=== PATIENT | female | born 1955 | race Caucasian/White ===

== ENCOUNTER 2017-03-23 11:54 | Outpatient (CLI) | payer BC ==
[~2017-03-23] VITALS: Ht 160 cm; Wt 75.9 kg
[2017-03-23 11:53] VITALS: BP 157/74; PULSE 84; RESP 18; Ht 160 cm; Wt 75.9 kg
[2017-03-23] MEDS ORDERED: ASPI-664 PO (12:04)
[2017-03-23] MEDS ORDERED: LISI20TA11 PO (12:04)
--- NOTE | 2017-03-23 22:45 | CONS ---
[facility] INITIAL OUTPATIENT CONSULTATION NOTE DATE OF CONSULTATION: 03/23/2017 PLACE OF SERVICE: [facility]. ASSESSMENT AND PLAN: A very pleasant and relatively healthy 62-year-old lady with an 8 mm infiltrating ductal carcinoma of the right breast. She can benefit from lumpectomy with sentinel lymph node biopsy and, after full multidisciplinary evaluation of her pathology report, then we can decide on further treatment. This will certainly include radiation to the breast and possible chemotherapy if there are worrisome features or perhaps we could do hormonal therapy after radiation. I explained all this to the patient including the operation in detail, which will be done by wire localization, risks, benefits, and alternatives and answered all their questions to the best of my ability. I believe the patient understands and agrees with the plans. With above assessment I have recommended the followin. Preoperative history and physical. 2. Wire localized lumpectomy with sentinel lymph node biopsy. 3. Multidisciplinary Tumor Board presentation. Thank you again for allowing us to participate in the care of this very pleasant lady and I am certain her wonderful family. If there are any questions , please feel free to contact me at [phone]. UPDATED CLINICAL SUMMARY: A very pleasant 62-year-old lady with comorbidity of BMI 29.6 and hypertension who presented with a recently discovered right upper outer quadrant 8 mm lesion of the breast, which on ultrasound-guided biopsy done 01/20/2017, unfortunately, shows infiltrating ductal carcinoma of the breast, moderately differentiated, but by Steele Ramos method (score 6/9) with tubular formations 3/3, nuclear atypia 2/3, and mitotic activity 1/3. Ductal carcinoma in situ was not identified. Lymphovascular invasion was not identified. Immunohistochemical stains for ER/WA were positive. HER-2/nu was negative. COMORBIDITIES: 1. BMI 29.6. 2. Hypertension. 3. Status post cholecystectomy in 1995. HISTORY OF PRESENT ILLNESS: The patient is a very pleasant 62-year-old lady without significant comorbid issues and, only BMI 29.6 and hypertension, presenting with above-mentioned small ductal carcinoma of the right breast in the outer quadrant. She does her own breast exams routinely and has not noted any masses. She also does not have any family history of breast cancer or ovarian/uterine/gynecologic malignancies in the family. There is no history of male breast cancers. She has noted no asymmetry of her breasts and no discharge from her nipples. Her weight has been stable and her appetite has been good. No other major complaints. ALLERGIES: NO KNOWN DRUG ALLERGIES. MEDICATIONS: At home she takes: 1. Aspirin. 2. Lisinopril. 3. Creon. 4. Vitamin D. 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 She does not report any smoking, drinking, or intravenous drug abuse. REVIEW OF SYSTEMS: There are no other pertinent positives or pertinent negatives in a complete 14-point review of systems. PHYSICAL EXAMINATION: GENERAL: The patient appears to be a very pleasant lady of [place] descent, appearing stated age, sitting in a chair comfortably, and in no acute distress. BMI is 29.6. VITAL SIGNS: Temperature 98.1, blood pressure 157/74. Pulse 84, respiratory rate 18. Pulse oximetry 95% on room air. HEENT: Normocephalic and atraumatic. Extraocular muscles and hearing are grossly intact bilaterally and symmetrically. Sclerae are nonicteric. Oral cavity is clear; oral mucosa appeared to be pink and moist. Dentition: fair. NECK: Supple. There is no lymphadenopathy or JVD. There is no submental, submandibular or supraclavicular lymphadenopathy. CHEST: Rises symmetrically with each breath; patient is breathing comfortably. There are no audible wheezes, rales or rhonchi on the gross exam. BREAST: No asymmetry with raising both arms above the head. Left breast exam showed no lymphadenopathy in the axilla. No discharge from the nipple. No significant tenderness to palpation. No skin changes. Right breast exam showed no lymphadenopathy in the axilla. No discharge from the nipple. No significant tenderness to palpation. No skin changes. HEART: Pulse is regular and palpable on the right wrist. Capillary refill was normal. Carotid pulses are palpable bilaterally and symmetrically in the neck. EXTREMITIES: Lower extremities contain no pitting edema around the ankles bilaterally and symmetrically. ABDOMEN: Abdomen is soft, nontender and nondistended. There are no peritoneal signs or guarding. No evidence of ascites, organomegaly, caput medusae, engorged subcutaneous veins, or other abnormalities. SKIN: Appears to be pink and feels warm to touch. NEUROLOGIC: Awake, alert, and follows commands appropriately. LABORATORY VALUES: None for this visit. IMAGING: The patient had a mammogram done bilaterally on 01/09/2017 that showed a suspicious 8 mm mass in the posterior upper outer right breast. Findings were highly suggestive of malignancy and warranted histology using ultrasound-guided core needle biopsy. She underwent this biopsy with ultrasound on 01/20/2017 with deployment of a marker clip at the biopsy site. Note that I personally reviewed all the available and pertinent images and I agree in general with their overall reported findings. To my impression, the clip is slightly outside of the area of the mass as outlined by the mammography. Dictated By: JUAN LOWERY/NTS Conf#: [id number] DID#: [id number] CC: JIMMY CISNEROS M.D.;*EndCC* MTDD
== END 2017-03-23 14:40 | disposition home or self-care (01) ==
LOC: HPC 11:54
PROVIDERS: ATTEND Transplant Surgery
DX: Z01.818 Encounter for other preprocedural examination (principal); C50.811 Malignant neoplasm of overlapping sites of right female breast; I10 Essential (primary) hypertension; Z90.49 Acquired absence of other specified parts of digestive tract
CPT/HCPCS: G0463

== ENCOUNTER 2017-04-09 06:54 | Day surgery (SDC) | payer BC ==
[2017-04-08 11:59] VITALS: BMI 29.3
[~2017-04-09] VITALS: Ht 160 cm; Wt 75.3 kg
[2017-04-09] VITALS (16 sets, daily range): BP systolic 103–149; BP diastolic 62–83; PULSE 70–94; RESP 12–35; Ht 160 cm; Wt 75.3 kg
[~2017-04-09 06:54] MED LIST: ASPI-664 PO; CEFAZOLIN 2 GM/50 ML (PMX) 50 ML IVPB SCH; D5W-0.45 NACL + KCL 20 MEQ 1,000 ML IV SCH; LISI20TA11 PO
[2017-04-09] MEDS ORDERED: CEFAZOLIN 2 GM/50 ML (PMX) 50 ML IVPB ONE (08:00)
[2017-04-09] MEDS ORDERED: D5W-0.45 NACL + KCL 20 MEQ 1,000 ML IV SCH (08:00)
[2017-04-09] MEDS ORDERED: LIPA1CAP6 PO (08:35)
[2017-04-09] MEDS ORDERED: SIMV40TA2 PO (08:36)
[2017-04-09] MEDS ORDERED: BUPIVACAINE 0.25%/EPI (SDV) 30 ML INJ ONE (09:15)
[2017-04-09] MEDS ORDERED: ISOSULFAN BLUE 1% 5 ML INJ SC ONE (09:15)
--- NOTE | 2017-04-09 09:28 | HPN ---
Date/Time of Note Date/Time of Note DATE: 04/09/17 TIME: 09:27 Interval H&P Admission Note Pt. seen H&P reviewed: No system changes Pt. seen H&P reviewed. No system changes (I attest that I have seen and examined the patient and reviewed the operation in detail, as well as its risks , benefits and alternatives of the operation). I attest that I have seen and examined the patient and reviewed in detail the operation, and its associated risks, benefits and alternative. I have answered all the patient's questions to the best of my ability and the patient wishes to proceed. Please refer to rest of electronic medical record for additional updates. JUAN CRUZ M.D. Apr 09, 2017 09:28
[2017-04-09] MEDS ORDERED: MIDAZOLAM 1 MG/ML 2 ML INJ IV PRN (09:30)
[2017-04-09] MEDS ORDERED: EPHEDrine SULFATE 50 MG/5 ML SYG IV PRN (09:30)
[2017-04-09] MEDS ORDERED: morphine (1 MG/ML) 10ML SYRINGE IV PRN ×2 (09:30)
[2017-04-09] MEDS ORDERED: LABETALOL HCL 20MG INJ IV PRN (09:30)
[2017-04-09] MEDS ORDERED: hydrALAzine 20 MG INJ IV PRN (09:30)
[2017-04-09] MEDS ORDERED: DIPHENHYDRAMINE 50 MG INJ IV PRN (09:30)
[2017-04-09] MEDS ORDERED: MEPERIDINE 25 MG INJ IV PRN (09:30)
[2017-04-09] MEDS ORDERED: METOCLOPRAMIDE 10 MG INJ IV PRN (09:30)
[2017-04-09] MEDS ORDERED: FENTAnyl 50 MCG/ML VIAL IV PRN ×2 (09:30)
[2017-04-09] MEDS ORDERED: ONDANSETRON 4 MG INJ IV PRN (09:30)
[2017-04-09] MEDS ORDERED: CEFAZOLIN 1 GM INJ ONE (09:37)
[2017-04-09] MEDS ORDERED: LIDOCAINE 2% (SDV) 5 ML INJ ONE (09:37)
[2017-04-09] MEDS ORDERED: PROPOFOL 20 ML ONE (09:37)
[2017-04-09] MEDS ORDERED: ONDANSETRON 4 MG INJ ONE (09:37)
[2017-04-09] MEDS ORDERED: MEPERIDINE 100 MG INJ ONE (09:37)
[2017-04-09] MEDS ORDERED: METOCLOPRAMIDE 10 MG INJ ONE (09:38)
[2017-04-09] MEDS ORDERED: EPHEDrine SULFATE 50 MG/5 ML SYG ONE (11:04)
--- NOTE | 2017-04-09 12:21 | OPR ---
Date/Time of Note Date/Time of Note DATE: 04/09/17 TIME: 12:21 Operative Report Procedure Description [facility] INPATIENT OPERATIVE NOTE PLACE OF SERVICE: [facility] DATE OF SURGERY: 04/09/2017 PREOPERATIVE DIAGNOSIS: 1. 8 mm infiltrating ductal carcinoma of right breast 2. Hypertension. 3. Status post cholecystectomy in 1995. 4. BMI 29.6. POSTOPERATIVE DIAGNOSIS: 1. 8 mm infiltrating ductal carcinoma of right breast 2. Hypertension. 3. Status post cholecystectomy in 1995. 4. BMI 29.6. OPERATION: 1. Right breast lumpectomy with sentinel lymph node biopsy SURGEON: Juan Cruz M.D. WALLBOARD WORKER: None ANESTHESIA: General endotracheal tube anesthesia ANESTHESIOLOGIST: Mario Chou M.D. BRIEF SUMMARY: An otherwise uncomplicated right breast lumpectomy with sentinel lymph node biopsy was performed with findings of small lesion in the specimen as seen in postlumpectomy x-rays as well as no palpable lymphadenopathy in the axilla UPDATED CLINICAL SUMMARY: A very pleasant 62-year-old lady with comorbidity of BMI 29.6 and hypertension who presented with a recently discovered right upper outer quadrant 8 mm lesion of the breast, which on ultrasound-guided biopsy done 01/20/2017, unfortunately, shows infiltrating ductal carcinoma of the breast, moderately differentiated, but by Steele Ramos method (score 6/9) with tubular formations 3/3, nuclear atypia 2/3, and mitotic activity 1/3. Ductal carcinoma in situ was not identified. Lymphovascular invasion was not identified. Immunohistochemical stains for ER/IN were positive. HER-2/nu was negative. COMORBIDITIES: 1. BMI 29.6. 2. Hypertension. 3. Status post cholecystectomy in 1995. BRIEF HISTORY: The patient is a very pleasant and relatively healthy 62-year- old lady with an 8 mm infiltrating ductal carcinoma of the right breast. She can benefit from lumpectomy with sentinel lymph node biopsy and, after full multidisciplinary evaluation of her pathology report, then we can decide on further treatment. This will certainly include radiation to the breast and possible chemotherapy if there are worrisome features or perhaps we could do hormonal therapy only after radiation. I explained all this to the patient including the operation in detail, which will be done by wire localization, risks, benefits, and alternatives and answered all their questions to the best of my ability. After careful consideration of all the risks, benefits, and alternatives, the patient appeared to understand those risks and wished to proceed with surgery. For a detailed report of my consultation with patient, please refer to my separate consultation note. Note that there were no family members present during any of my discussions with the patient, either in the office or the preoperative area. STATEMENT OF THE INFORMED CONSENT: The patient appeared to understand the risks of the operation to include, but not be limited to risk of postoperative pain and scar tissue, possible infection or bleeding requiring other interventions such as opening the wound, placement of drainage catheters, or other operative interventions; possible injury to surrounding to structures including bowel, bladder, bile duct, or blood vessels, or solid organs such as liver, kidney, or pancreas requiring other interventions or procedures; possible leakage of bowel from anastomotic sites or suture lines causing significant increase in morbidity and mortality and requiring multiple interventions including but not limited to, placement of drainage catheters, imaging studies, as well as operative interventions; possible other source of sepsis such as urinary tract infections or pneumonias, or other sources of potentially life threatening problems such as deep venous thrombus formation causing pulmonary embolism, myocardial arrhythmias and infarctions, and even . After careful consideration of all their options, the patient appeared to understand and wished to proceed with surgery. DESCRIPTION OF PROCEDURE: After obtaining informed consent, the patient was brought into the operating room and was placed in a normal supine position, where successful general endotracheal tube anesthesia was performed. Intravenous access was already in place and intravenous antimicrobials had been appropriately chosen and dosed prior to the operation. We then called a surgical time-out where the patient's identification, date of , nature of the operation, allergies, presence of intravenous antimicrobials, presence of needed equipment, and any other concerns were reviewed and agreed upon by all members of the operating room team. I then injected 1 cc of Lymphazurin ( undilated) in the subcutaneous area above and around the 10 o'clock position on the nipple areolar complex border skin. No adverse reaction was noted on the patient. We then prepped and draped the patient's chest as well as right axilla in the usual sterile fashion. We then started the operation by performing a subcutaneous ultrasound evaluation using Site-Rite and identified the course of the needle and chose an appropriate place to make a 4 cm skin incision which was accomplished by using a scalpel. We then used cautery to do a partial lumpectomy creating a defect size of approximately 6 cm x 5 cm in length and width and 4 cm in depth taking a cylindrical tissue with the tip of the needle localization wire in the center of it and getting the deep margin directly off of the fascia of the muscle. I marked the specimen with short suture marking superior, long suture marking lateral, and double suture marking the deep margin and send this to pathology after we obtained x-ray evaluation to confirm presence of the clip and the end of the localization wire. I then placed a 2-1/2 cm skin incision in the border of the right axilla and upper outer chest area using scalpel and then very carefully dissected through the axillary fat pad in order to identify the blue lymphatic channel that was coming from the breast tissue into that space. We followed the lymphatic channel onto tissue that appeared to be part of the lymph node system (sentinel lymph node). Note that even though the lymphatic channel appears to be blue, the rest of the lymph nodes did not appear to have significant blue dye in them. I removed the tissue did appear to be lymphatic channel as well as the lymph node and send this to pathology for sentinel lymph node biopsy specimen. Careful digital evaluation as well as subcutaneous ultrasound evaluation with Site-Rite did not demonstrate any pathologic or palpable lymph nodes in the area of the right axilla. We then ensured adequate hemostasis and wash the cavities with copious amounts of normal saline prior to closing the defects using 3-0 Vicryl suture to reapproximate the subcutaneous soft tissue and obliterating the underlying cavity followed by 4-0 Monocryl suture in a running fashion to close the skin. Light dressing was then applied. At the end of the operation, both the sponge count and needle count were reportedly correct x2. The patient tolerated the procedure without any reported complications. ESTIMATED BLOOD LOSS: Less than 10 mL. BLOOD OR BLOOD PRODUCT TRANSFUSIONS: None to my knowledge. SPECIMENS: 1. Right breast lumpectomy 2. [place] lymph node tissue COMPLICATIONS: None. DISPOSITION: Recovery area. Disclaimer: Inadvertent spelling and grammatical errors are likely due to EHR/ dictation software use and do not reflect on the quality of delivered patient care. Also, please note that the electronic time recorded on this node does not necessarily reflect the actual time of the visit. JUAN CRUZ M.D. Apr 09, 2017 12:21
[2017-04-09] MEDS ORDERED: DOCUSATE SODIUM 100 MG CAP PO PRN (12:30)
[2017-04-09] MEDS ORDERED: HYDROCODONE/APAP (5/325) TAB PO PRN ×2 (12:30)
[2017-04-09] MEDS ORDERED: BISACODYL 10 MG SUPP PR PRN (12:30)
== END 2017-04-09 14:05 | disposition home or self-care (01) ==
LOC: SDS 06:54
PROVIDERS: ATTEND Transplant Surgery
DX: D05.11 Intraductal carcinoma in situ of right breast (principal); I10 Essential (primary) hypertension; E66.9 Obesity, unspecified; Z68.29 Body mass index [BMI] 29.0-29.9, adult; E78.5 Hyperlipidemia, unspecified
CPT/HCPCS: 19301; 38500; 38792; 88307; J0690; J2175; J2270; J2405; J2765; J3010; Z7512; Z7610; Q9968

== ENCOUNTER 2017-04-22 09:38 | Outpatient (CLI) | payer BC ==
[~2017-04-22] VITALS: Ht 158.8 cm; Wt 75.0 kg
[~2017-04-22 09:38] MED LIST changes: -CEFAZOLIN 2 GM/50 ML (PMX) 50 ML IVPB SCH; -D5W-0.45 NACL + KCL 20 MEQ 1,000 ML IV SCH; +LIPA1CAP6 PO; +SIMV40TA2 PO
[2017-04-22 09:53] VITALS: BP 149/72; PULSE 78; RESP 18; Ht 158.8 cm; Wt 75.0 kg
--- NOTE | 2017-04-22 17:40 | PN ---
Date/Time of Note Date/Time of Note DATE: 04/22/17 TIME: 17:19 Assessment/Plan Assessment/Plan Assessment/Plan [facility] Progress Note Date of Service: 04/22/17 Today's Impression & Plan: Overall doing well post op without major issues. No major wound problems. No lymphedema symptoms or signs. We discussed the pathology result, with careful review of the ramification of a non-diagnostic sentinel lymph node biopsy. I reviewed the options, which included repeat attempt at sentinel lymph node biopsy, full R axillary lymph node dissection, or observation only with plans to proceed with the rest of standard treatment which will likely be radiation therapy, followed by hormone suppression therapy. I reviewed the reasoning behind why I'm leaning towards perhaps no further axillary surgery (including - L/V invasion on final path, no clinically obvious lymph nodes on pre-operative and intraoperative imaging or by intraoperative exploration of the axilla, the chance of a repeat non-diagnostic sentinel lymph node exploration given the first one did not yield the needed results, and the morbidity of lymphedema, which is significantly increased in the case of doing a full right axillary lymph node dissection). Please also note that I did tell the patient that the NCCN-guided treatment and national guidelines would suggest further surgical intervention in the axilla to better stage the patient (either repeat SLNBx or full ALNDx), and we also reviewed the results of the Z11 trial and its implications. I asked permission to represent the patient's case in our MDTB and to seek the advice of our colleagues regarding this matter prior to further decisions. Answered all questions. Patient appeared to understand and agreed with plans. With above assessment, I've recommended the following for today: 1. Multidisciplinary tumor board presentation with consideration of options 2. Continued therapy for R breast malignancy as outlined above 3. Consultation with breast oncology 4. Consultation with radiation oncology 5. Consideration for radiation therapy to R breast/axilla, followed by hormonal blockade (Tamoxifen x5 yrs) Thank you again for your great care of this very pleasant patient and wonderful family. If there are any questions, please feel free to call me at [phone]. TOTAL VISIT TIME: 20 minutes of which more than half was spent in [id number] discussion with the patient, possibly including family, as well as coordination of care between multiple physicians and providers. Disclaimer: Inadvertent spelling or grammatical errors are likely due to EHR/ dictation software use and do not reflect on the overall quality of patient care. Updated Clinical Summary: A very pleasant 62-year-old lady with comorbidity of BMI 29.6 and hypertension who presented with a recently discovered right upper outer quadrant 8 mm lesion of the breast, which on ultrasound-guided biopsy done 01/20/2017, unfortunately , shows infiltrating ductal carcinoma of the breast, moderately differentiated, but by Steele Ramos method (score 6/9) with tubular formations 3/3, nuclear atypia 2/3, and mitotic activity 1/3. Ductal carcinoma in situ was not identified. Lymphovascular invasion was not identified. Immunohistochemical stains for ER/NM were positive. HER-2/nu was negative. S/p right breast lumpectomy with sentinel lymph node biopsy at [facility] 04/09/17 with final path showing invasive ductal carcinoma, moderately differentiated, grade 2, 1.2 cm, - lymph/vascular invasion, closest margin 7 mm from inferior margin; DCIS, low grade, isolated microscopic foci, at least 1 cm, cribriform and solid, - necrosis, closest margin 4 mm from the anterior margin. No lymph tissue identified in sentinel lymph node biopsy specimen. COMORBIDITIES: 1. 8 mm infiltrating ductal carcinoma of right breast, s/p ultrasound-guided biopsy done 01/20/2017, + infiltrating ductal carcinoma of the breast, moderately differentiated, Steele Ramos score 6/9 with tubular formations 3/ 3, nuclear atypia 2/3, and mitotic activity 1/3. - DCIS. - L/V. + ER/NM, - HER -2/nu. 2. Hypertension. 3. Status post cholecystectomy in 1995. 4. BMI 29.6. 4. S/p right breast lumpectomy with sentinel lymph node biopsy at [facility] 04/09/17 with final path showing invasive ductal carcinoma, moderately differentiated, grade 2, 1.2 cm, - lymph/vascular invasion, closest margin 7 mm from inferior margin; DCIS, low grade, isolated microscopic foci, at least 1 cm, cribriform and solid, - necrosis, closest margin 4 mm from the anterior margin. No lymph tissue identified in sentinel lymph node biopsy specimen. Subjective: No major events or complaints; no R breast or axillary pain and under control with medications; no n/v/d; no sob or cp; + flatus; + BM and normal; + activity. No lymphedema symptoms. Objective: Vitals: See below Exam: GENERAL: On exam, the patient was sitting in a chair and appeared to be comfortable and in no acute distress. CHEST: R breast and axillary incisions c/d/i w/o e/e or d. No lymphedema signs. ABDOMEN: Soft, nontender and nondistended. There are no peritoneal signs or guarding. SKIN: Skin appears to be pink and feels warm to touch. NEUROLOGIC: Patient is awake, alert, and follows commands appropriately. Exam/Review of Systems Vital Signs Vitals Vital Signs Date Time Temp Pulse Resp B/P Pulse Ox O2 Delivery O2 Flow Rate FiO2 04/22/17 09:53 98.1 78 18 149/72 96 Room Air JUAN CRUZ M.D. Apr 22, 2017 17:36
== END 2017-04-22 16:42 | disposition home or self-care (01) ==
LOC: HPC 09:38
PROVIDERS: ATTEND Transplant Surgery
DX: C50.411 Malignant neoplasm of upper-outer quadrant of right female breast (principal); I10 Essential (primary) hypertension
CPT/HCPCS: G0463

== ENCOUNTER 2017-05-20 10:52 | Outpatient (CLI) | payer BC ==
[~2017-05-20] VITALS: Ht 158.8 cm; Wt 76.8 kg
[2017-05-20 10:55] VITALS: BP 187/91; PULSE 84; RESP 18; Ht 158.8 cm; Wt 76.8 kg
--- NOTE | 2017-05-20 14:39 | PN ---
Date/Time of Note Date/Time of Note DATE: 05/20/17 TIME: 14:28 Assessment/Plan Assessment/Plan Assessment/Plan [facility] Progress Note Date of Service: 05/20/17 Today's Impression & Plan: Overall stable. ? etiology of left breast erythema; possible seroma post op. Does not have an obvious appearance of infection, but ordered US and wrote for antimicrobials (Augmentin), to be taken only if symptoms worsen. Discussed issue of sentinel lymph node biopsy failure with a colleague from [facility]. He agreed that no further surgical intervention for the axilla is needed at this time. Discussed with patient and answered all questions. Patient appeared to understand and agreed with plans. With above assessment, I've recommended the following for today: 1. Right breast ultrasound ordered 2. Take Augmentin only if worsened in the next few days (more erythema, any discharge, fever, increased discomfort or pain, etc); call us if any of these symptoms 3. F/u with us after above 4. Oncotype testing to be done through PCP's office or oncologist's office (may be helpful in deciding further treatment) 5. Agree with radiation oncology consultation and consideration for local radiation therapy to R breast lumpectomy site and axilla 6. Surveillance US of the R axilla every 6 months for two years, followed by annually for another 2 years and then reassess 7. Hormonal therapy for at least 5 years 8. Multidisciplinary tumor board presentation with consideration of options Nature of Presenting Problem: Moderate severity Thank you again for your great care of this very pleasant patient and wonderful family. If there are any questions, please feel free to call me at [phone]. Disclaimer: Inadvertent spelling or grammatical errors are likely due to EHR/ dictation software use and do not reflect on the overall quality of patient care. Updated Clinical Summary: A very pleasant 62-year-old lady with comorbidity of BMI 29.6 and hypertension who presented with a recently discovered right upper outer quadrant 8 mm lesion of the breast, which on ultrasound-guided biopsy done 01/20/2017, unfortunately , shows infiltrating ductal carcinoma of the breast, moderately differentiated, but by Steele Ramos method (score 6/9) with tubular formations 3/3, nuclear atypia 2/3, and mitotic activity 1/3. Ductal carcinoma in situ was not identified. Lymphovascular invasion was not identified. Immunohistochemical stains for ER/MT were positive. HER-2/nu was negative. S/p right breast lumpectomy with sentinel lymph node biopsy at [facility] 04/09/17 with final path showing invasive ductal carcinoma, moderately differentiated, grade 2, 1.2 cm, - lymph/vascular invasion, closest margin 7 mm from inferior margin; DCIS, low grade, isolated microscopic foci, at least 1 cm, cribriform and solid, - necrosis, closest margin 4 mm from the anterior margin. No lymph tissue identified in sentinel lymph node biopsy specimen. Right breast erythema noted and prompted an outpatient office visit with us. COMORBIDITIES: 1. 8 mm infiltrating ductal carcinoma of right breast, s/p ultrasound-guided biopsy done 01/20/2017, + infiltrating ductal carcinoma of the breast, moderately differentiated, Steele Ramos score 6/9 with tubular formations 3/ 3, nuclear atypia 2/3, and mitotic activity 1/3. - DCIS. - L/V. + ER/MT, - HER -2/nu. 2. Hypertension. 3. Status post cholecystectomy in 1995. 4. BMI 29.6. 4. S/p right breast lumpectomy with sentinel lymph node biopsy at [facility] 04/09/17 with final path showing invasive ductal carcinoma, moderately differentiated, grade 2, 1.2 cm, - lymph/vascular invasion, closest margin 7 mm from inferior margin; DCIS, low grade, isolated microscopic foci, at least 1 cm, cribriform and solid, - necrosis, closest margin 4 mm from the anterior margin. No lymph tissue identified in sentinel lymph node biopsy specimen. Subjective: No major events or complaints except for above; no R breast or axillary pain and no longer on pain medications; R breast erythema noted since yesterday; no pain; no discharge; no fever; no other symptoms related to breast; surgical sites without any issues; no n/v/d; no sob or cp; + flatus; + BM and normal; + activity. No lymphedema symptoms. Objective: Vitals: See below Exam: GENERAL: On exam, the patient was sitting in a chair and appeared to be comfortable and in no acute distress. CHEST: R breast and axillary incisions c/d/i w/o e/e or d. Slight erythema around the NA complex, 10 cm in diameter; blanching but no calor; no discharge from nipples; L breast appeared normal. No lymphedema signs. ABDOMEN: Soft, nontender and nondistended. There are no peritoneal signs or guarding. SKIN: Skin appears to be pink and feels warm to touch. NEUROLOGIC: Patient is awake, alert, and follows commands appropriately. Exam/Review of Systems Vital Signs Vitals Vital Signs Date Time Temp Pulse Resp B/P Pulse Ox O2 Delivery O2 Flow Rate FiO2 05/20/17 10:55 98.1 84 18 187/91 95 Room Air JUAN CRUZ M.D. May 20, 2017 14:38
== END 2017-05-20 16:44 | disposition home or self-care (01) ==
LOC: HPC 10:52
PROVIDERS: ATTEND Transplant Surgery
DX: C50.911 Malignant neoplasm of unspecified site of right female breast (principal); I10 Essential (primary) hypertension
CPT/HCPCS: G0463

== ENCOUNTER 2017-05-27 06:45 | Day surgery (SDC) | payer BC ==
[~2017-05-27] VITALS: Ht 160 cm; Wt 74.5 kg
[2017-05-27 07:05] VITALS: BP 103/61; PULSE 59; RESP 18
[2017-05-27 07:11] VITALS: Ht 160 cm; Wt 74.5 kg
[2017-05-27 08:47] VITALS: BP 135/76; PULSE 67; RESP 22
[2017-05-27 09:23] VITALS: BP 123/70; PULSE 72; RESP 14
[2017-05-27] MEDS ORDERED: FENTAnyl 50 MCG/ML VIAL ONE (09:27)
[2017-05-27] MEDS ORDERED: MIDAZOLAM 1 MG/ML 2 ML INJ ONE ×2 (09:27)
[2017-05-27 09:50] VITALS: BP 122/80; PULSE 72; RESP 12
--- NOTE | 2017-05-31 11:32 | GILP ---
DATE OF PROCEDURE: 05/27/2017 PROCEDURE PERFORMED: Colonoscopy and biopsy. SURGEON: Jv Tolentino MD PREOPERATIVE DIAGNOSIS: Screening colonoscopy. POSTOPERATIVE DIAGNOSES: Colonoscopy all the way to the cecum. Two small sigmoid colon polyps were removed using the biopsy forceps. Internal hemorrhoids. INDICATION: The patient is a 62-year-old female patient, who is scheduled for screening colonoscopy. The procedure and possible complications were well explained to the patient. She understood and consented to the procedure. DESCRIPTION OF PROCEDURE: Under the influence of fentanyl and Versed, the colonoscope was carefully introduced in the rectum, and under direct vision it was advanced all the way to the cecum. FINDINGS: The patient had 2 small sigmoid colon polyps and they were removed using the biopsy forceps. The patient also had internal hemorrhoids. She tolerated the procedure very well. There was no complication from the procedure. At the end of procedure she was awake with stable vital signs and she was discharged to the care of her family. IMPRESSION: Colonoscopy all the way to the cecum. Two small sigmoid colon polyps were removed using the biopsy forceps. Internal hemorrhoids. PLAN: Next screening colonoscopy in 10 years. Dictated By: MD MALAIKA Interiano/jude/bjc /Document#: [id number]
== END 2017-05-27 19:35 | disposition home or self-care (01) ==
LOC: GIL 06:45
PROVIDERS: ATTEND Internal Medicine Gastroenterology
DX: Z12.11 Encounter for screening for malignant neoplasm of colon (principal); D12.5 Benign neoplasm of sigmoid colon; I10 Essential (primary) hypertension
CPT/HCPCS: 45380; 88305; J2250; J3010; Z7610

== ENCOUNTER 2017-09-02 10:25 | Outpatient (CLI) | payer BC ==
[~2017-09-02] VITALS: Ht 158.8 cm; Wt 73.6 kg
[2017-09-02 10:27] VITALS: BP 143/79; PULSE 84; RESP 18; Ht 158.8 cm; Wt 73.6 kg
--- NOTE | 2017-09-02 11:06 | PN ---
Date/Time of Note Date/Time of Note DATE: 09/02/17 TIME: 10:53 Assessment/Plan Assessment/Plan Assessment/Plan [facility] Progress Note Date of Service: 09/02/17 Today's Impression & Plan: Overall stable and doing well. No new issues with R breast or with R axilla. Under therapy. Tumor board discussion resulted in split recommendations, where half the group that included more than one surgical oncologist with breast cancer experience recommended against repeat attempt at [facility]. I discussed fully with patient and answered all questions. Patient appeared to understand and agreed with plans. With above assessment, I've recommended the following for today: 1. Right axilla ultrasound now and in January 2018, in addition to #3 below ( staggered) 2. F/u on Oncotype results 3. Continue surveillance US of the R axilla and breast every 6 months for two years, followed by annually for another 2 years and then reassess 4. Cont hormonal therapy for at least 5 years 5. Continue multidisciplinary tumor board presentations Nature of Presenting Problem: Moderate severity Thank you again for your great care of this very pleasant patient and wonderful family. If there are any questions, please feel free to call me at [phone]. Disclaimer: Inadvertent spelling or grammatical errors are likely due to EHR/ dictation software use and do not reflect on the overall quality of patient care. Updated Clinical Summary: A very pleasant 62-year-old lady with comorbidity of BMI 29.6 and hypertension who presented with a recently discovered right upper outer quadrant 8 mm lesion of the breast, which on ultrasound-guided biopsy done 01/20/2017, unfortunately , shows infiltrating ductal carcinoma of the breast, moderately differentiated, but by Steele Ramos method (score 6/9) with tubular formations 3/3, nuclear atypia 2/3, and mitotic activity 1/3. Ductal carcinoma in situ was not identified. Lymphovascular invasion was not identified. Immunohistochemical stains for ER/MD were positive. HER-2/nu was negative. S/p right breast lumpectomy with sentinel lymph node biopsy at [facility] 04/09/17 with final path showing invasive ductal carcinoma, moderately differentiated, grade 2, 1.2 cm, - lymph/vascular invasion, closest margin 7 mm from inferior margin; DCIS, low grade, isolated microscopic foci, at least 1 cm, cribriform and solid, - necrosis, closest margin 4 mm from the anterior margin. No lymph tissue identified in sentinel lymph node biopsy specimen. Right breast erythema noted and prompted an outpatient office visit with us. COMORBIDITIES: 1. 8 mm infiltrating ductal carcinoma of right breast, s/p ultrasound-guided biopsy done 01/20/2017, + infiltrating ductal carcinoma of the breast, moderately differentiated, Steele Ramos score 6/9 with tubular formations 3/ 3, nuclear atypia 2/3, and mitotic activity 1/3. - DCIS. - L/V. + ER/MD, - HER -2/nu. 2. Hypertension. 3. Status post cholecystectomy in 1995. 4. BMI 29.6. 4. S/p right breast lumpectomy with sentinel lymph node biopsy at [facility] 04/09/17 with final path showing invasive ductal carcinoma, moderately differentiated, grade 2, 1.2 cm, - lymph/vascular invasion, closest margin 7 mm from inferior margin; DCIS, low grade, isolated microscopic foci, at least 1 cm, cribriform and solid, - necrosis, closest margin 4 mm from the anterior margin. No lymph tissue identified in sentinel lymph node biopsy specimen. Subjective: No major events or complaints; no R breast or axillary pain and not on pain medications; no pain; no discharge; no fever; no other symptoms related to breast; surgical sites without any issues; no n/v/d; no sob or cp; + flatus; + BM and normal; + activity. No lymphedema symptoms. Minor sensory issues with fingers and feet, and mild L calf pain. Objective: Vitals: See below Exam: GENERAL: On exam, the patient was sitting in a chair and appeared to be comfortable and in no acute distress. CHEST: R breast and axillary incisions c/d/i w/o e/e or d. No lymphedema signs. ABDOMEN: Soft, nontender and nondistended. There are no peritoneal signs or guarding. SKIN: Skin appears to be pink and feels warm to touch. NEUROLOGIC: Patient is awake, alert, and follows commands appropriately. Exam/Review of Systems Vital Signs Vitals Vital Signs Date Time Temp Pulse Resp B/P Pulse Ox O2 Delivery O2 Flow Rate FiO2 09/02/17 10:27 98.0 84 18 143/79 96 Room Air JUAN CRUZ M.D. Sep 02, 2017 11:06
== END 2017-09-02 15:52 | disposition home or self-care (01) ==
LOC: HPC 10:25
PROVIDERS: ATTEND Transplant Surgery
DX: C50.411 Malignant neoplasm of upper-outer quadrant of right female breast (principal); I10 Essential (primary) hypertension
CPT/HCPCS: G0463